=== PATIENT | female | born 1975 | race Caucasian/White ===

== ENCOUNTER 2016-11-13 13:11 | Emergency (ER) | payer MEDICAID ==
[2016-11-13 13:26] VITALS: BP 161/112
== END 2016-11-13 13:30 | disposition left against medical advice (07) ==
LOC: JP.ED 13:11
DX: Z53.21 Procedure and treatment not carried out due to patient leaving prior to being seen by health care provider (principal)
CPT/HCPCS: 99281

== ENCOUNTER 2016-11-23 11:11 | Emergency (ER) | payer MEDICAID ==
[2016-11-23 11:22] VITALS: BP 154/109
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
== END 2016-11-23 12:26 | disposition home or self-care (01) ==
LOC: JP.ED 11:11
DX: M79.7 Fibromyalgia (principal); F41.9 Anxiety disorder, unspecified; J45.909 Unspecified asthma, uncomplicated; F32.9 Major depressive disorder, single episode, unspecified; F17.210 Nicotine dependence, cigarettes, uncomplicated; Z79.899 Other long term (current) drug therapy; Z88.6 Allergy status to analgesic agent
CPT/HCPCS: 99283

== ENCOUNTER 2017-01-08 13:21 | Emergency (ER) | payer MEDICAID ==
[2017-01-08 14:37] VITALS: BP 110/69
--- NOTE | 2017-01-08 15:24 | EDM.PDOC ---
ED HPI GENERAL MEDICAL PROBLEM - General Chief Complaint: Genitourinary Problem Stated Complaint: POSSIBLE INFECTION IN PRIVATE AREA Time Seen by Provider: 01/08/17 14:50 Source of Information: Reports: Patient History Limitations: Reports: No Limitations - History of Present Illness INITIAL COMMENTS - FREE TEXT/NARRATIVE: Gi presents today with complaints of malaise, pain to bilateral arms. legs, all joints for 24 hours. She also complains of injury to left labia from razor several days ago. She also reports yellow/green vaginal discharge for several days. She complains of nausea with one emesis in the past 24 hours. She denies risk of sexually transmitted diseases. Onset Date: 01/07/17 Duration: Hour(s):, Getting Worse Location: Reports: Generalized Quality: Reports: Ache Severity: Moderate Improves with: Reports: None Worsens with: Reports: None Associated Symptoms: Reports: Fever/Chills, Malaise, Nausea/Vomiting. Denies: Confusion, Chest Pain, Cough, Diaphoresis, Headaches, Loss of Appetite, Rash, Shortness of Breath, Syncope, Weakness - Related Data Allergies Allergy/AdvReac Type Severity Reaction Status Date / Time acetaminophen [From Tylenol] Allergy Vomiting Verified 01/08/17 14:39 Home Meds: Home Meds Gabapentin [Gabapentin] 600 mg PO QID 11/23/16 [History] Lisdexamfetamine [Vyvanse] 70 mg PO DAILY 11/23/16 [History] Omeprazole [Omeprazole] 1 tab PO DAILY 11/23/16 [History] buPROPion [Wellbutrin XL] 300 mg PO DAILY 11/23/16 [History] ARIPiprazole [Abilify] 15 mg PO DAILY 01/08/17 [History] Budesonide/Formoterol Fumarate [Symbicort 80-4.5 Mcg Inhaler] 2 puff IH BID 03/16 [History] ClonazePAM [KlonoPIN] 1 mg PO TID 01/08/17 [History] DULoxetine [Cymbalta] 30 mg PO DAILY 01/08/17 [History] Ibuprofen [Motrin] 800 mg PO Q8HR PRN 01/08/17 [History] Lisinopril 20 mg PO DAILY 01/08/17 [History] Past Medical History Respiratory History: Reports: Asthma Gastrointestinal History: Reports: Gastritis 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: , 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 Musculoskeletal History: Reports: Fibromyalgia Psychiatric History: Reports: ADHD, Anxiety, Depression, Panic Attack - Infectious Disease History Infectious Disease History: Reports: Chicken Pox - Past Surgical History HEENT Surgical History: Reports: Oral Surgery GI Surgical History: Reports: Cholecystectomy Female Surgical History: Reports: Section Social & Family History - Tobacco Use Smoking Status *Q: Current Every Day Smoker Years of Tobacco use: 30 Packs/Tins Daily: 0.5 Used Tobacco, but Quit: No Second Hand Smoke Exposure: Yes - Caffeine Use Caffeine Use: Reports: Soda, Tea - Recreational Drug Use Recreational Drug Use: Yes Drug Use in Last 12 Months: No Recreational Drug Type: Reports: Other (see below) (IV drug use of wellbutrin 2 years ago.) ED ROS GENERAL - Review of Systems Review Of Systems: See Below Constitutional: Reports: Fever, Malaise. Denies: Chills, Weakness, Night Sweats , Diaphoresis, Decreased Appetite HEENT: Reports: No Symptoms Respiratory: Denies: Shortness of Breath, Wheezing, Cough, Sputum, Hemoptysis Cardiovascular: Denies: Chest Pain, Blood Pressure Problem, Claudication, Dyspnea on Exertion, Edema, Lightheadedness, Palpitations, PND Endocrine: Reports: Fatigue. Denies: Polydypsia, Polyuria GI/Abdominal: Reports: Nausea, Vomiting. Denies: Black Stool, Bloody Stool, Constipation, Diarrhea, Difficulty Swallowing : Reports: Discharge. Denies: Dysuria, Flank Pain, Frequency, Hematuria, Incontinence, Pain, Urgency Musculoskeletal: Reports: Joint Pain, Muscle Pain. Denies: Joint Swelling Skin: Reports: Lesions, Other (Abscess noted to left labia with wound to left inner labia. ). Denies: Cyanosis, Pallor, Bruising, Pruritis, Rash, Erythema, Urticaria Neurological: Denies: Confusion, Dizziness, Headache, Numbness, Paresthesia, Tingling, Trouble Speaking, Difficulty Walking, Weakness, Change in Speech, Gait Disturbance Psychiatric: Reports: No Symptoms Hematologic/Lymphatic: Reports: No Symptoms Immunologic: Reports: No Symptoms ED EXAM, GENERAL - Physical Exam Exam: See Below Exam Limited By: No Limitations General Appearance: Alert, WD/WN, Mild Distress Eye Exam: Bilateral Eye: EOMI, Normal Fundi, Normal Inspection, PERRL Ears: Normal External Exam, Normal Canal, Hearing Grossly Normal, Normal TMs Ear Exam: Bilateral Ear: Auricle Normal, Canal Normal, TM normal Nose: Normal Inspection, Normal Mucosa, No Blood Throat/Mouth: Normal Inspection, Normal Lips, Normal Gums, Normal Oropharynx, Normal Voice Head: Atraumatic, Normocephalic Neck: Normal Inspection, Supple, Non-Tender, Full Range of Motion. No: Lymphadenopathy (R), Lymphadenopathy (L) Respiratory/Chest: No Respiratory Distress, Lungs Clear, Normal Breath Sounds, No Accessory Muscle Use, Chest Non-Tender Cardiovascular: Normal Peripheral Pulses, Regular Rate, Rhythm, No Edema, No Gallop, No Murmur, No Rub Peripheral Pulses: 2+: Radial (L), Radial (R), Dorsalis Pedis (L), Dorsalis Pedis (R) GI/Abdominal: Normal Bowel Sounds, Soft, Non-Tender, No Organomegaly, No Distention, No Abnormal Bruit, No Mass (Female) Exam: Other (Left labial abscess and wound noted, erythema, tenderness to palpation. No discharge from wounds. No fluctuance surrounding abscess/wound areas. ) Back Exam: Normal Inspection, Full Range of Motion. No: CVA Tenderness (R), CVA Tenderness (L) Extremities: Normal Inspection, Normal Range of Motion, Non-Tender, No Pedal Edema, Normal Capillary Refill Neurological: Alert, Oriented, CN II-XII Intact, Normal Cognition, Normal Gait, No Motor/Sensory Deficits Psychiatric: Normal Affect, Normal Mood Skin Exam: Warm, Dry, Intact, Normal Color, No Rash Lymphatic: No Adenopathy EKG INTERPRETATION EKG Date: 01/08/17 [place]: Normal P-Wave: Present QRS: Normal ST-T: Normal QT: Normal EKG Interpretation Comments: Sinus tachycardia without acute findings or ST changes. Course - Vital Signs Last Recorded V/S: Last Vital Signs Temp 36.7 C 01/08/17 14:46 Pulse 150 H 01/08/17 14:46 Resp 20 01/08/17 14:46 BP 110/69 01/08/17 14:46 Pulse Ox 97 01/08/17 14:46 - Orders/Labs/Meds Orders: Active Orders 24 hr Category Date Time Status EKG Documentation Completion [RC] ASDIRECTED Care 01/08/17 15:30 Active CHLAMYDIA,AND GC BY APTIMA Stat Lab 01/08/17 15:17 Received EKG 12 Lead [EK] Routine Ther 01/08/17 15:29 Ordered Labs: Laboratory Tests 01/08/17 01/08/17 01/08/17 Range/Units 14:21 15:16 15:26 WBC 15.8 H (4.5-11.0) K/uL RBC 4.71 (3.30-5.50) M/uL Hgb 13.5 (12.0-15.0) g/dL Hct 40.5 (36.0-48.0) % MCV 86 (80-98) fL MCH 29 (27-31) pg MCHC 33 (32-36) % Plt Count 269 (150-400) K/uL Neut % (Auto) 86 H (36-66) % Lymph % (Auto) 5 L (24-44) % [place] % (Auto) 8 H (2-6) % Eos % (Auto) 1 L (2-4) % Baso % (Auto) 0 (0-1) % Sodium (140-148) mmol/L Potassium (3.6-5.2) mmol/L Chloride (100-108) mmol/L Carbon Dioxide (21-32) mmol/L Anion Gap (5.0-14.0) mmol/L BUN (7-18) mg/dL Creatinine (0.6-1.0) mg/dL Est Cr Clr Drug Dosing mL/min Estimated GFR (MDRD) (>60) Glucose (74-106) mg/dL Calcium (8.5-10.1) mg/dL Magnesium (1.8-2.4) mg/dL Urine Color Yellow Urine Appearance Cloudy Urine pH 5.0 (4.5-8.0) Ur Specific [place] 1.025 (1.008-1.030) Urine Protein Negative (NEGATIVE) mg/dL Urine Glucose (UA) Normal (NEGATIVE) mg/dL Urine Ketones Negative (NEGATIVE) mg/dL Urine Occult Blood Negative (NEGATIVE) Urine Nitrite Negative (NEGATIVE) Urine Bilirubin Small (NEGATIVE) Urine Urobilinogen Normal (NORMAL) mg/dL Ur Leukocyte Esterase Large (NEGATIVE) Urine RBC 0-5 (0-5) Urine WBC 20-30 H (0-5) Ur Epithelial Cells Many Amorphous Sediment Not seen Urine Bacteria Not seen Urine Mucus Few Urine Opiates Screen Negative (NEGATIVE) Ur Oxycodone Screen Negative (NEGATIVE) Urine Methadone Screen Negative (NEGATIVE) Ur Propoxyphene Screen Negative (NEGATIVE) Ur Barbiturates Screen Negative (NEGATIVE) Ur Tricyclics Screen Negative (NEGATIVE) Ur Phencyclidine Scrn Negative (NEGATIVE) Ur Amphetamine Screen Positive H (NEGATIVE) U Methamphetamines Scrn Positive H (NEGATIVE) Urine MDMA Screen Positive H (NEGATIVE) U Benzodiazepines Scrn Positive H (NEGATIVE) U Cocaine Metab Screen Negative (NEGATIVE) U Marijuana (THC) Screen Positive H (NEGATIVE) 01/08/17 Range/Units 15:26 WBC (4.5-11.0) K/uL RBC (3.30-5.50) M/uL Hgb (12.0-15.0) g/dL Hct (36.0-48.0) % MCV (80-98) fL MCH (27-31) pg MCHC (32-36) % Plt Count (150-400) K/uL Neut % (Auto) (36-66) % Lymph % (Auto) (24-44) % [place] % (Auto) (2-6) % Eos % (Auto) (2-4) % Baso % (Auto) (0-1) % Sodium 134 L (140-148) mmol/L Potassium 4.4 (3.6-5.2) mmol/L Chloride 103 (100-108) mmol/L Carbon Dioxide 26 (21-32) mmol/L Anion Gap 9.4 (5.0-14.0) mmol/L BUN 13 (7-18) mg/dL Creatinine 1.0 (0.6-1.0) mg/dL Est Cr Clr Drug Dosing 59.15 mL/min Estimated GFR (MDRD) > 60 (>60) Glucose 94 (74-106) mg/dL Calcium 8.4 L (8.5-10.1) mg/dL Magnesium 1.6 L (1.8-2.4) mg/dL Urine Color Urine Appearance Urine pH (4.5-8.0) Ur Specific [place] (1.008-1.030) Urine Protein (NEGATIVE) mg/dL Urine Glucose (UA) (NEGATIVE) mg/dL Urine Ketones (NEGATIVE) mg/dL Urine Occult Blood (NEGATIVE) Urine Nitrite (NEGATIVE) Urine Bilirubin (NEGATIVE) Urine Urobilinogen (NORMAL) mg/dL Ur Leukocyte Esterase (NEGATIVE) Urine RBC (0-5) Urine WBC (0-5) Ur Epithelial Cells Amorphous Sediment Urine Bacteria Urine Mucus Urine Opiates Screen (NEGATIVE) Ur Oxycodone Screen (NEGATIVE) Urine Methadone Screen (NEGATIVE) Ur Propoxyphene Screen (NEGATIVE) Ur Barbiturates Screen (NEGATIVE) Ur Tricyclics Screen (NEGATIVE) Ur Phencyclidine Scrn (NEGATIVE) Ur Amphetamine Screen (NEGATIVE) U Methamphetamines Scrn (NEGATIVE) Urine MDMA Screen (NEGATIVE) U Benzodiazepines Scrn (NEGATIVE) U Cocaine Metab Screen (NEGATIVE) U Marijuana (THC) Screen (NEGATIVE) Wet prep positive for clue cells. Meds: Medications Discontinued Medications Generic Name Dose Route Start Last Admin Trade Name Freq PRN Reason Stop Dose Admin Magnesium Oxide 400 mg 01/08/17 16:09 01/08/17 16:18 Magnesium Oxide PO 01/08/17 16:10 400 mg ONETIME ONE Administration Metronidazole 500 mg 01/08/17 16:09 01/08/17 16:18 Metronidazole PO 01/08/17 16:10 500 mg ONETIME ONE Administration Trimethoprim/Sulfamethoxazole 1 tab 01/08/17 16:08 01/08/17 16:18 Septra Ds PO 01/08/17 16:09 1 tab ONETIME ONE Administration - Re-Assessments/Exams Free Text/Narrative Re-Assessment/Exam: 01/08/17 16:10 Discussed lab work with patient, she denies use of illicit substances. She will be provided first course of bactrim DS for labia abscess, metronidazole for bacterial vaginosis and magnesium for hypomagnesemia. Gi verbalizes understanding. She will report to Dr. Reyes's clinic tomorrow for recheck. Free Text/Narrative Re-Assessment/Exam: 01/08/17 16:28 [address] Mack [address] Reyes notified of patient lab values, medications and plan, they are both in agreement with plan. Patient offered tetanus vaccine booster due to razor cut, patient declined. Departure - Departure Time of Disposition: 16:12 Disposition: Home, Self-Care 01 Condition: Fair Clinical Impression: Bacterial vaginal infection, Labial abscess, Hypomagnesemia - Discharge Information Instructions: Hypomagnesemia, Bacterial Vaginosis, [id number] Referrals: Gilmer Reyes Sr, MD [Primary Care Provider] - Forms: ED Department Discharge Additional Instructions: You are suffering from labia abscess, bacterial vaginosis and low magnesium. You have been provided first course of bactrim DS for labia abscess, metronidazole for bacterial vaginosis and magnesium for hypomagnesemia. Hard copy prescriptions provided for entire course. It is best to report to Dr. Reyes's clinic tomorrow for recheck and any other medications or changes. Return to the emergency room for any worsening, fever, chills, change in mental status as discussed. - My Orders Last 24 Hours: My Active Orders 01/08/17 15:17 CHLAMYDIA,AND GC BY APTIMA Stat 01/08/17 15:29 EKG 12 Lead [EK] Routine 01/08/17 15:30 EKG Documentation Completion [RC] ASDIRECTED - Assessment/Plan Last 24 Hours: My Active Orders 01/08/17 15:17 CHLAMYDIA,AND GC BY APTIMA Stat 01/08/17 15:29 EKG 12 Lead [EK] Routine 01/08/17 15:30 EKG Documentation Completion [RC] ASDIRECTED Assessment:: Bacterial vaginosis Labial abscess Hypomaganesemia Plan: Patient suffering from labia abscess, bacterial vaginosis and low magnesium. She has been provided first course of bactrim DS for labia abscess, metronidazole for bacterial vaginosis and magnesium for hypomagnesemia in the ER prior to discharge. Education provided on importance of follow up, taking medication in its complete course. Hard copy prescriptions provided to patient for entire course, however she reports her care is restricted to Dr. Reyes. It is best to report to Dr. Reyes's clinic tomorrow for recheck and any other medications or changes. Return to the emergency room for any worsening, fever, chills, change in mental status as discussed.
[2017-01-08] MEDS ORDERED: Sulfamethoxazole/Trimethoprim 800-160 MG Tab PO ONE (16:08)
[2017-01-08] MEDS ORDERED: metroNIDAZOLE 250 MG Tab PO ONE (16:09)
[2017-01-08] MEDS ORDERED: Magnesium Oxide 400 MG Tab PO ONE (16:09)
== END 2017-01-08 16:37 | disposition home or self-care (01) ==
LOC: JP.ED 13:21
DX: N76.0 Acute vaginitis (principal); N76.4 Abscess of vulva; E83.42 Hypomagnesemia; F41.9 Anxiety disorder, unspecified; F32.9 Major depressive disorder, single episode, unspecified; J45.909 Unspecified asthma, uncomplicated; F17.210 Nicotine dependence, cigarettes, uncomplicated; F90.9 Attention-deficit hyperactivity disorder, unspecified type; Z90.49 Acquired absence of other specified parts of digestive tract; Z98.890 Other specified postprocedural states; Z79.899 Other long term (current) drug therapy; Z88.6 Allergy status to analgesic agent
CPT/HCPCS: 36415; 80048; 80305; 81001; 83735; 85025; 87210; 87491; 87591; 93005; 99284; A9270

== ENCOUNTER 2017-01-18 19:47 | Emergency (ER) | payer MEDICAID ==
[2017-01-18] MEDS ORDERED: Ketorolac 60 MG/2 ML SDV IM ONE (20:49)
--- NOTE | 2017-01-18 20:54 | EDM.PDOC ---
ED HPI GENERAL MEDICAL PROBLEM - General Chief Complaint: General Stated Complaint: ILLNESS PAIN Time Seen by Provider: 01/18/17 20:40 Source of Information: Reports: Patient, Old Records, RN History Limitations: Reports: No Limitations - History of Present Illness INITIAL COMMENTS - FREE TEXT/NARRATIVE: 41 yo female here with exacerbation of her chronic fibromyalgia for the past 2 days. Has not contacted her primary. None of her sx's are new, just worse. Is on Cymbalta and gabapentin already. Taking OTC meds also. Recently got a tetanus in her L shoulder that was recently red and sore, slightly better now. Onset: Gradual Onset Date: 01/16/17 Duration: Day(s):, Getting Worse Location: Reports: Generalized Quality: Reports: Ache Severity: Moderate Improves with: Reports: None Worsens with: Reports: Other (? 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 Reyes) Generalized Pain Score (Numeric/FACES): 8 - Related Data Allergies Allergy/AdvReac Type Severity Reaction Status Date / Time acetaminophen [From Tylenol] Allergy Vomiting Verified 01/18/17 20:29 Home Meds: Home Meds Gabapentin [Gabapentin] 600 mg PO QID 11/23/16 [History] Lisdexamfetamine [Vyvanse] 70 mg PO DAILY 11/23/16 [History] Omeprazole [Omeprazole] 1 tab PO DAILY 11/23/16 [History] buPROPion [Wellbutrin XL] 300 mg PO DAILY 11/23/16 [History] ARIPiprazole [Abilify] 15 mg PO DAILY 01/08/17 [History] Budesonide/Formoterol Fumarate [Symbicort 80-4.5 Mcg Inhaler] 2 puff IH BID 03/16 [History] ClonazePAM [KlonoPIN] 1 mg PO TID 01/08/17 [History] DULoxetine [Cymbalta] 30 mg PO DAILY 01/08/17 [History] Ibuprofen [Motrin] 800 mg PO Q8HR PRN 01/08/17 [History] Lisinopril 20 mg PO DAILY 01/08/17 [History] Past Medical History Respiratory History: Reports: Asthma Gastrointestinal History: Reports: Gastritis 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: , 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 Musculoskeletal History: Reports: Fibromyalgia Psychiatric History: Reports: ADHD, Anxiety, Depression, Panic Attack - Infectious Disease History Infectious Disease History: Reports: Chicken Pox - Past Surgical History HEENT Surgical History: Reports: Oral Surgery GI Surgical History: Reports: Cholecystectomy Female Surgical History: Reports: Section Social & Family History - Tobacco Use Smoking Status *Q: Unknown Ever Smoked Years of Tobacco use: 30 Packs/Tins Daily: 0.5 Used Tobacco, but Quit: No Second Hand Smoke Exposure: Yes - Caffeine Use Caffeine Use: Reports: Soda, Tea - Recreational Drug Use Recreational Drug Use: Yes Drug Use in Last 12 Months: No Recreational Drug Type: Reports: Other (see below) (IV drug use of wellbutrin 2 years ago.) ED ROS GENERAL - Review of Systems Review Of Systems: See Below Constitutional: Reports: Other ([place] warm last night) HEENT: Reports: No Symptoms Respiratory: Reports: No Symptoms Cardiovascular: Reports: No Symptoms GI/Abdominal: Reports: No Symptoms : Reports: No Symptoms Musculoskeletal: Reports: Other (diffuse body aches) Skin: Reports: Erythema (L shoulder last night.) Neurological: Reports: No Symptoms ED EXAM, GENERAL - Physical Exam Exam: See Below Exam Limited By: No Limitations General Appearance: Alert, WD/WN, No Apparent Distress, Obese Eye Exam: Bilateral Eye: Normal Inspection Ears: Normal External Exam, Normal Canal, Hearing Grossly Normal Ear Exam: Bilateral Ear: Auricle Normal, Canal Normal Nose: Normal Inspection, Normal Mucosa, No Blood Throat/Mouth: Normal Inspection, Normal Lips, Normal Oropharynx, Normal Voice, No Airway Compromise Head: Atraumatic, Normocephalic Neck: Normal Inspection, Supple Respiratory/Chest: No Respiratory Distress, Lungs Clear, Normal Breath Sounds, No Accessory Muscle Use Cardiovascular: Tachycardia GI/Abdominal: Normal Bowel Sounds, Soft, Non-Tender, No Distention Back Exam: Normal Inspection. No: CVA Tenderness (R), CVA Tenderness (L) Extremities: Normal Inspection, Normal Range of Motion, Non-Tender, No Pedal Edema Neurological: Alert, Oriented, CN II-XII Intact, Normal Cognition Psychiatric: Normal Affect, Normal Mood Skin Exam: Warm, Dry, Intact, Normal Color, No Rash, Increased Warmth (L deltoid area with minimal erythema) Lymphatic: No Adenopathy Course - Vital Signs Text/Narrative:: Orthostatic vitals normal Last Recorded V/S: Last Vital Signs Temp 36.1 C 01/18/17 20:24 Pulse 122 H 01/18/17 21:43 Resp 20 01/18/17 21:43 BP 117/77 01/18/17 21:43 Pulse Ox 98 01/18/17 21:43 - Orders/Labs/Meds Orders: Active Orders 24 hr Category Date Time Status Orthostatic Vital Signs [RC] ASDIRECTED Care 01/18/17 20:54 Active CULTURE URINE [RM] Stat Lab 01/18/17 21:55 Ordered Labs: Laboratory Tests 01/18/17 01/18/17 Range/Units 21:03 21:43 WBC 9.0 (4.5-11.0) K/uL RBC 4.42 (3.30-5.50) M/uL Hgb 12.4 (12.0-15.0) g/dL Hct 38.3 (36.0-48.0) % MCV 87 (80-98) fL MCH 28 (27-31) pg MCHC 32 (32-36) % Plt Count 323 (150-400) K/uL Urine Color Yellow Urine Appearance Cloudy Urine pH 7.0 (4.5-8.0) Ur Specific [place] 1.010 (1.008-1.030) Urine Protein Negative (NEGATIVE) mg/dL Urine Glucose (UA) Normal (NEGATIVE) mg/dL Urine Ketones Negative (NEGATIVE) mg/dL Urine Occult Blood Negative (NEGATIVE) Urine Nitrite Negative (NEGATIVE) Urine Bilirubin Negative (NEGATIVE) Urine Urobilinogen Normal (NORMAL) mg/dL Ur Leukocyte Esterase Moderate (NEGATIVE) Urine RBC 0-5 (0-5) Urine WBC 5-10 H (0-5) Ur Epithelial Cells Moderate Amorphous Sediment Few Urine Bacteria Rare Urine Mucus Few Meds: Medications Discontinued Medications Generic Name Dose Route Start Last Admin Trade Name Freq PRN Reason Stop Dose Admin Ketorolac Tromethamine 60 mg 01/18/17 20:49 01/18/17 21:17 Toradol IM 01/18/17 20:50 60 mg ONETIME ONE Administration Departure - Departure Time of Disposition: 22:00 Disposition: Home, Self-Care 01 Condition: Fair Clinical Impression: Fibromyalgia - Discharge Information Referrals: Gilmer Reyes Sr, MD [Primary Care Provider] - Forms: ED Department Discharge - My Orders Last 24 Hours: My Active Orders 01/18/17 20:54 Orthostatic Vital Signs [RC] ASDIRECTED 01/18/17 21:55 CULTURE URINE [RM] Stat - Assessment/Plan Last 24 Hours: My Active Orders 01/18/17 20:54 Orthostatic Vital Signs [RC] ASDIRECTED 01/18/17 21:55 CULTURE URINE [RM] Stat
[2017-01-18 21:44] VITALS: BP 117/77
== END 2017-01-18 22:12 | disposition home or self-care (01) ==
LOC: JP.ED 19:47
DX: M79.7 Fibromyalgia (principal); J45.909 Unspecified asthma, uncomplicated; F90.9 Attention-deficit hyperactivity disorder, unspecified type; F41.8 Other specified anxiety disorders; Z90.49 Acquired absence of other specified parts of digestive tract; Z98.890 Other specified postprocedural states; Z88.6 Allergy status to analgesic agent; Z79.899 Other long term (current) drug therapy
CPT/HCPCS: 36415; 81001; 85027; 87086; 96372; 99284; J1885

== ENCOUNTER 2017-02-24 14:03 | Emergency (ER) | payer MEDICAID ==
[2017-02-24 14:16] VITALS: BP 137/83
[2017-02-24] MEDS ORDERED: methylPREDNISolone Sodium Succinate 125 MG/2 ML SDV IM ONE (14:37)
--- NOTE | 2017-02-24 14:38 | EDM.PDOC ---
ED HPI GENERAL MEDICAL PROBLEM - General Chief Complaint: Back Pain or Injury Stated Complaint: BACK & LEG PAIN Time Seen by Provider: 02/24/17 14:15 Source of Information: Reports: Patient, Family History Limitations: Reports: No Limitations - History of Present Illness INITIAL COMMENTS - FREE TEXT/NARRATIVE: 41-year-old female who has chronic pain from fibromyalgia has had an increase in her lower back pain on the left side over the past several days. She was at work last night but had to leave early because it was so painful, she is in today for some relief and a note for work. The pain is localized to the left lower back, some radiation into the buttock but no paresthesias to the leg. The pain is worse when standing, is relieved by sitting. Onset: Gradual (Over the past several days) Location: Reports: Back Quality: Reports: Ache, Burning, Sharp Severity: Moderate Improves with: Reports: Rest Worsens with: Reports: Other (Standing) Associated Symptoms: Reports: No Other Symptoms Left Lower Back Pain Score (Numeric/FACES): 9 - Related Data Allergies Allergy/AdvReac Type Severity Reaction Status Date / Time acetaminophen [From Tylenol] Allergy Vomiting Verified 02/24/17 14:16 atomoxetine [From Strattera] Allergy Vomiting Verified 02/24/17 14:16 milnacipran [From Savella] Allergy Vomiting Verified 02/24/17 14:16 Home Meds: Home Meds Gabapentin [Gabapentin] 600 mg PO QID 11/23/16 [History] Lisdexamfetamine [Vyvanse] 70 mg PO DAILY 11/23/16 [History] Omeprazole [Omeprazole] 1 tab PO DAILY 11/23/16 [History] buPROPion [Wellbutrin XL] 300 mg PO DAILY 11/23/16 [History] ARIPiprazole [Abilify] 15 mg PO DAILY 01/08/17 [History] Budesonide/Formoterol Fumarate [Symbicort 80-4.5 Mcg Inhaler] 2 puff IH BID 03/16 [History] ClonazePAM [KlonoPIN] 1 mg PO TID 01/08/17 [History] DULoxetine [Cymbalta] 30 mg PO DAILY 01/08/17 [History] Ibuprofen [Motrin] 800 mg PO Q8HR PRN 01/08/17 [History] Lisinopril 20 mg PO DAILY 01/08/17 [History] Past Medical History Respiratory History: Reports: Asthma Gastrointestinal History: Reports: Gastritis 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: , 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 Musculoskeletal History: Reports: Fibromyalgia Psychiatric History: Reports: ADHD, Anxiety, Depression, Panic Attack - Infectious Disease History Infectious Disease History: Reports: Chicken Pox - Past Surgical History HEENT Surgical History: Reports: Oral Surgery GI Surgical History: Reports: Cholecystectomy Female Surgical History: Reports: Section Social & Family History - Tobacco Use Smoking Status *Q: Unknown Ever Smoked Years of Tobacco use: 30 Packs/Tins Daily: 0.5 Used Tobacco, but Quit: No Second Hand Smoke Exposure: Yes - Caffeine Use Caffeine Use: Reports: Soda, Tea - Recreational Drug Use Recreational Drug Use: Yes Drug Use in Last 12 Months: No Recreational Drug Type: Reports: Other (see below) (IV drug use of wellbutrin 2 years ago.) ED ROS GENERAL - Review of Systems Review Of Systems: See Below Constitutional: Denies: Fever, Chills Respiratory: Denies: Shortness of Breath GI/Abdominal: Denies: Abdominal Pain, Diarrhea, Nausea, Vomiting : Reports: No Symptoms Skin: Denies: Rash Neurological: Denies: Headache ED EXAM,LOWER BACK PAIN/INJURY - Physical Exam Exam: See Below Exam Limited By: No Limitations General Appearance: Alert, Mild Distress (Patient is tearful) Head: Atraumatic Respiratory/Chest: No Respiratory Distress, Lungs Clear Back Exam: Paraspinal Tenderness (Patient reacts with tenderness to palpation along the left paralumbar muscles) Neurological: Alert, Oriented x 3. No: Straight Leg Raise (L) (No straight leg raising findings, no paresthesias or neuropathy to the left leg), Straight Leg Raise (R) Course - Vital Signs Last Recorded V/S: Last Vital Signs Temp 97.9 F 02/24/17 14:14 Pulse 118 H 02/24/17 14:14 Resp 16 02/24/17 14:14 BP 137/83 02/24/17 14:14 Pulse Ox 96 02/24/17 14:14 - Orders/Labs/Meds Meds: Medications Discontinued Medications Generic Name Dose Route Start Last Admin Trade Name Freq PRN Reason Stop Dose Admin Methylprednisolone Sodium Succinate 125 mg 02/24/17 14:37 02/24/17 14:42 Solu-Medrol IM 02/24/17 14:38 125 mg ONETIME ONE Administration - Re-Assessments/Exams Free Text/Narrative Re-Assessment/Exam: 02/24/17 14:36 Patient is already taking ibuprofen and Lyrica. I'll provide her with an injection of Solu-Medrol 125 mg IM and she can rest her back tonight and I'll provide her a work note. When I went in a few minutes later she was dressed and appeared much more comfortable even without the medication. She was informed to recheck with her primary doctor on Sunday if not improving satisfactorily. Departure - Departure Time of Disposition: 14:49 Disposition: Home, Self-Care 01 Condition: Good Clinical Impression: Acute exacerbation of chronic low back pain - Discharge Information Instructions: Back Pain, Adult, [id number] Referrals: Gilmer Reyes Sr, MD [Primary Care Provider] - Forms: ED Department Discharge Care Plan Goals: Rest the next 24 hours and increase activity as tolerated. Try to resume your regular activity in 2-3 days, if unable recheck with Dr. Reyes. Resume regular medications.
== END 2017-02-24 14:50 | disposition home or self-care (01) ==
LOC: EEVIPCON 14:03 → JP.ED 14:03
DX: M54.5 Low back pain (principal); G89.29 Other chronic pain; F32.9 Major depressive disorder, single episode, unspecified; F41.0 Panic disorder [episodic paroxysmal anxiety]; Z79.899 Other long term (current) drug therapy; Z88.6 Allergy status to analgesic agent; Z88.8 Allergy status to other drugs, medicaments and biological substances
CPT/HCPCS: 96372; 99283; J2930

== ENCOUNTER 2017-04-11 20:01 | Emergency (ER) | payer MEDICAID ==
[2017-04-11 20:15] VITALS: BP 132/80
[2017-04-11] MEDS ORDERED: Aluminum Hydroxide/Magnesium Hydroxide/Simethicone Susp 30 ML Cup PO ONE (20:34)
--- NOTE | 2017-04-11 20:49 | EDM.PDOC ---
ED HPI GENERAL MEDICAL PROBLEM - General Chief Complaint: Abdominal Pain Stated Complaint: VOMITING / CAN'T KEEP ANYTHING DOWN Time Seen by Provider: 04/11/17 20:30 Source of Information: Reports: Patient, Family History Limitations: Reports: No Limitations - History of Present Illness INITIAL COMMENTS - FREE TEXT/NARRATIVE: 41-year-old female with significant epigastric discomfort and heartburn with reflux for the past 3 days causing her to cough with nausea and vomiting. She is taking Prilosec but it's not helping, she has not tried any oral antacids. No fevers or chills, no bowel changes, no abdominal distention or radiation to her back. No shortness of breath, recent trauma. 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 Onset: Gradual Location: Reports: Abdomen Severity: Moderate Associated Symptoms: Reports: Cough, Nausea/Vomiting abd pain Pain Score (Numeric/FACES): 7 - Related Data Allergies Allergy/AdvReac Type Severity Reaction Status Date / Time acetaminophen [From Tylenol] Allergy Vomiting Verified 04/11/17 20:12 atomoxetine [From Strattera] Allergy Vomiting Verified 04/11/17 20:12 milnacipran [From Savella] Allergy Vomiting Verified 04/11/17 20:12 Home Meds: Home Meds Lisdexamfetamine [Vyvanse] 70 mg PO DAILY 11/23/16 [History] Omeprazole [Omeprazole] 1 tab PO DAILY 11/23/16 [History] buPROPion [Wellbutrin XL] 300 mg PO DAILY 11/23/16 [History] Budesonide/Formoterol Fumarate [Symbicort 80-4.5 Mcg Inhaler] 2 puff IH BID 03/16 [History] ClonazePAM [KlonoPIN] 1 mg PO TID 01/08/17 [History] Ibuprofen [Motrin] 800 mg PO Q8HR PRN 01/08/17 [History] Lisinopril 40 mg PO DAILY 01/08/17 [History] Pregabalin [Lyrica] 100 mg PO TID 04/11/17 [History] amLODIPine [Norvasc] 5 mg PO DAILY 04/11/17 [History] Past Medical History Cardiovascular History: Reports: Hypertension Respiratory History: Reports: Asthma, Sleep Apnea Gastrointestinal History: Reports: Chronic Diarrhea, Gastritis, GERD 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: , 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 Musculoskeletal History: Reports: Fibromyalgia, Other (See Below) Other Musculoskeletal History: degenerative disc diseas Psychiatric History: Reports: ADHD, Anxiety, Depression, Panic Attack Endocrine/Metabolic History: Reports: Obesity/BMI 30+ - Infectious Disease History Infectious Disease History: Reports: Chicken Pox - Past Surgical History HEENT Surgical History: Reports: Oral Surgery GI Surgical History: Reports: Cholecystectomy Female Surgical History: Reports: Section Social & Family History - Tobacco Use Smoking Status *Q: Current Every Day Smoker Years of Tobacco use: 31 Packs/Tins Daily: 0.5 Used Tobacco, but Quit: No Second Hand Smoke Exposure: Yes - Caffeine Use Caffeine Use: Reports: Soda - Recreational Drug Use Recreational Drug Use: No Drug Use in Last 12 Months: No Recreational Drug Type: Reports: Other (see below) (IV drug use of wellbutrin 2 years ago.) ED ROS GENERAL - Review of Systems Review Of Systems: See Below Constitutional: Reports: Malaise. Denies: Fever, Chills HEENT: Reports: No Symptoms Respiratory: Reports: Cough. Denies: Shortness of Breath Cardiovascular: Denies: Chest Pain, Palpitations GI/Abdominal: Reports: Abdominal Pain, Diarrhea, Other ("Bad heartburn"). Denies: Constipation : Reports: No Symptoms Musculoskeletal: Reports: Back Pain (Chronic back pain) Neurological: Denies: Headache Psychiatric: Reports: Anxiety, Depression ED EXAM, GI/ABD - Physical Exam Exam: See Below Exam Limited By: No Limitations General Appearance: Alert, No Apparent Distress Eyes: Bilateral: Normal Appearance Throat/Mouth: Normal Inspection Head: Atraumatic Respiratory/Chest: No Respiratory Distress, Lungs Clear Cardiovascular: Regular Rate, Rhythm GI/Abdominal Exam: Normal Bowel Sounds, Soft, Tender (Some [id number] tenderness to palpation of the epigastric area) Neurological: Alert, Oriented Psychiatric: Depressed Mood, Flat Affect Skin Exam: Warm, Dry Course - Vital Signs Last Recorded V/S: Last Vital Signs Temp 97.9 F 04/11/17 20:22 Pulse 119 H 04/11/17 20:22 Resp 16 04/11/17 20:22 BP 132/80 04/11/17 20:22 Pulse Ox 96 04/11/17 20:22 - Orders/Labs/Meds Orders: Active Orders 24 hr Category Date Time Status Abdomen 2V AP Flat Upright [CR] Stat Exams 04/11/17 20:34 Taken Labs: Laboratory Tests 04/11/17 04/11/17 04/11/17 Range/Units 20:46 20:46 20:55 WBC 8.4 (4.5-11.0) K/uL RBC 4.52 (3.30-5.50) M/uL Hgb 11.6 L (12.0-15.0) g/dL Hct 37.4 (36.0-48.0) % MCV 83 (80-98) fL MCH 26 L (27-31) pg MCHC 31 L (32-36) % Plt Count 297 (150-400) K/uL Neut % (Auto) 65 (36-66) % Lymph % (Auto) 25 (24-44) % [place] % (Auto) 8 H (2-6) % Eos % (Auto) 2 (2-4) % Baso % (Auto) 0 (0-1) % Sodium 138 L (140-148) mmol/L Potassium 3.6 (3.6-5.2) mmol/L Chloride 105 (100-108) mmol/L Carbon Dioxide 26 (21-32) mmol/L Anion Gap 10.6 (5.0-14.0) mmol/L BUN 16 (7-18) mg/dL Creatinine 0.8 (0.6-1.0) mg/dL Est Cr Clr Drug Dosing 73.93 mL/min Estimated GFR (MDRD) > 60 (>60) Glucose 94 (74-106) mg/dL Calcium 8.2 L (8.5-10.1) mg/dL Total Bilirubin 0.3 (0.2-1.0) mg/dL AST 20 (15-37) U/L ALT 26 (12-78) U/L Alkaline Phosphatase 109 (46-116) U/L Total Protein 7.1 (6.4-8.2) g/dL Albumin 3.0 L (3.4-5.0) g/dL Globulin 4.1 H (2.3-3.5) g/dL Albumin/Globulin Ratio 0.7 L (1.2-2.2) Amylase 24 L (25-115) U/L Lipase 83 (73-393) U/L Urine Color Urine Appearance Urine pH (4.5-8.0) Ur Specific [place] (1.008-1.030) Urine Protein (NEGATIVE) mg/dL Urine Glucose (UA) (NEGATIVE) mg/dL Urine Ketones (NEGATIVE) mg/dL Urine Occult Blood (NEGATIVE) Urine Nitrite (NEGATIVE) Urine Bilirubin (NEGATIVE) Urine Urobilinogen (NORMAL) mg/dL Ur Leukocyte Esterase (NEGATIVE) Urine RBC (0-5) Urine WBC (0-5) Ur Epithelial Cells Amorphous Sediment Urine Bacteria Urine Mucus Urine Opiates Screen Negative (NEGATIVE) Ur Oxycodone Screen Negative (NEGATIVE) Urine Methadone Screen Negative (NEGATIVE) Ur Propoxyphene Screen Negative (NEGATIVE) Ur Barbiturates Screen Negative (NEGATIVE) Ur Tricyclics Screen Negative (NEGATIVE) Ur Phencyclidine Scrn Negative (NEGATIVE) Ur Amphetamine Screen Positive H (NEGATIVE) U Methamphetamines Scrn Negative (NEGATIVE) Urine MDMA Screen Negative (NEGATIVE) U Benzodiazepines Scrn Positive H (NEGATIVE) U Cocaine Metab Screen Negative (NEGATIVE) U Marijuana (THC) Screen Negative (NEGATIVE) 04/11/17 Range/Units 20:55 WBC (4.5-11.0) K/uL RBC (3.30-5.50) M/uL Hgb (12.0-15.0) g/dL Hct (36.0-48.0) % MCV (80-98) fL MCH (27-31) pg MCHC (32-36) % Plt Count (150-400) K/uL Neut % (Auto) (36-66) % Lymph % (Auto) (24-44) % [place] % (Auto) (2-6) % Eos % (Auto) (2-4) % Baso % (Auto) (0-1) % Sodium (140-148) mmol/L Potassium (3.6-5.2) mmol/L Chloride (100-108) mmol/L Carbon Dioxide (21-32) mmol/L Anion Gap (5.0-14.0) mmol/L BUN (7-18) mg/dL Creatinine (0.6-1.0) mg/dL Est Cr Clr Drug Dosing mL/min Estimated GFR (MDRD) (>60) Glucose (74-106) mg/dL Calcium (8.5-10.1) mg/dL Total Bilirubin (0.2-1.0) mg/dL AST (15-37) U/L ALT (12-78) U/L Alkaline Phosphatase (46-116) U/L Total Protein (6.4-8.2) g/dL Albumin (3.4-5.0) g/dL Globulin (2.3-3.5) g/dL Albumin/Globulin Ratio (1.2-2.2) Amylase (25-115) U/L Lipase (73-393) U/L Urine Color Yellow Urine Appearance Cloudy Urine pH 6.5 (4.5-8.0) Ur Specific [place] 1.010 (1.008-1.030) Urine Protein Negative (NEGATIVE) mg/dL Urine Glucose (UA) Normal (NEGATIVE) mg/dL Urine Ketones Negative (NEGATIVE) mg/dL Urine Occult Blood Negative (NEGATIVE) Urine Nitrite Negative (NEGATIVE) Urine Bilirubin Negative (NEGATIVE) Urine Urobilinogen 1 (NORMAL) mg/dL Ur Leukocyte Esterase Negative (NEGATIVE) Urine RBC 0-5 (0-5) Urine WBC 0-5 (0-5) Ur Epithelial Cells Few Amorphous Sediment Not seen Urine Bacteria Few Urine Mucus Not seen Urine Opiates Screen (NEGATIVE) Ur Oxycodone Screen (NEGATIVE) Urine Methadone Screen (NEGATIVE) Ur Propoxyphene Screen (NEGATIVE) Ur Barbiturates Screen (NEGATIVE) Ur Tricyclics Screen (NEGATIVE) Ur Phencyclidine Scrn (NEGATIVE) Ur Amphetamine Screen (NEGATIVE) U Methamphetamines Scrn (NEGATIVE) Urine MDMA Screen (NEGATIVE) U Benzodiazepines Scrn (NEGATIVE) U Cocaine Metab Screen (NEGATIVE) U Marijuana (THC) Screen (NEGATIVE) Meds: Medications Discontinued Medications Generic Name Dose Route Start Last Admin Trade Name Freq PRN Reason Stop Dose Admin Al Hydroxide/Mg Hydroxide 30 ml 04/11/17 20:34 04/11/17 20:41 Mag-Al Plus PO 04/11/17 20:35 30 ml ONETIME ONE Administration - Re-Assessments/Exams Free Text/Narrative Re-Assessment/Exam: 04/11/17 20:48 Patient was given 30 mL of liquid Maalox. CBC, CMP, amylase and lipase were obtained. We also obtained a urine for a UA and urine tox screen. 04/11/17 21:19 two-view abdominal x-ray was negative, labs were all reassuring and normal. Urine tox screen was positive for medications that the patient is prescribed. I asked her about the large prescription for gabapentin that she was recently prescribed before starting Lyrica, she said she took the medication to the "[facility] lockbox" and sounds believable. I suspect she is having gastritis from taking too much ibuprofen and would like her to talk to Dr. Reyes about getting an EGD. Departure - Departure Time of Disposition: 21:29 Disposition: Home, Self-Care 01 Condition: Good Clinical Impression: Abdominal pain Qualifiers: Abdominal location: upper abdomen, unspecified Qualified Code(s): R10.10 - Upper abdominal pain, unspecified Gastritis Qualifiers: Gastritis type: unspecified gastritis Chronicity: acute Gastritis bleeding: without bleeding Qualified Code(s): K29.00 - Acute gastritis without bleeding - Discharge Information Instructions: Gastritis, Adult, [id number] Referrals: Gilmer Reyes Sr, MD [Primary Care Provider] - Forms: ED Department Discharge Care Plan Goals: Continue your regular medications, adding liquid Maalox may help. A bland diet and small meal portions may also help. You may want to try to decrease the amount of ibuprofen you're taking, or at least take it with food. Talk to Dr. Reyes about any further testing such as an EGD. - My Orders Last 24 Hours: My Active Orders 04/11/17 20:34 Abdomen 2V AP Flat Upright [CR] Stat - Assessment/Plan Last 24 Hours: My Active Orders 04/11/17 20:34 Abdomen 2V AP Flat Upright [CR] Stat
--- NOTE | 2017-04-12 11:59 | CR ---
Large amount of fecal residual. Nonobstructive bowel gas pattern.
== END 2017-04-11 21:30 | disposition home or self-care (01) ==
LOC: JP.ED 20:01
DX: K29.00 Acute gastritis without bleeding (principal); I10 Essential (primary) hypertension; K21.9 Gastro-esophageal reflux disease without esophagitis; F41.0 Panic disorder [episodic paroxysmal anxiety]; F32.9 Major depressive disorder, single episode, unspecified; F17.210 Nicotine dependence, cigarettes, uncomplicated; Z79.899 Other long term (current) drug therapy; Z88.6 Allergy status to analgesic agent; Z88.8 Allergy status to other drugs, medicaments and biological substances
CPT/HCPCS: 36415; 74020; 80053; 80305; 81001; 82150; 83690; 85025; 99284; A9270